=== PATIENT | female | born 1935 | race Caucasian/White ===

== ENCOUNTER 2020-04-12 11:37 | Inpatient (IN) | payer MEDICARE ==
[2020-04-12] MEDS ORDERED: Diltiazem 125 MG/25 ML ONE (12:03)
[2020-04-12 12:18] LABS: Hemoglobin 15.2 g/dL (12.0-16.0); Mean Corpuscular HGB CONC 33.2 g/dL (32.0-36.0); Mean Corpuscular Hemoglobin 30.7 pg (27.0-31.0); Mean Corpuscular Volume 92.3 fL (78.0-98.0); Mean Platelet Volume 7.8 fL (7.4-10.4); Platelet Count 327 thou/uL (130-400); RBC Distribution Width 12.8 % (11.5-14.5); Red Blood Cell (RBC) Count 4.94 mill/uL (4.20-5.40); White Blood Cell (WBC) Count 20.4 thou/uL (4.8-10.8)
[2020-04-12] MEDS ORDERED: cefTRIAXone\\ROCEPHIN 2 GM VIAL ONE (12:27)
[2020-04-12 12:38] LABS: Band 23 % (5-11); Large Platelets SLIGHT; Lymphocytes 4 % (21-51); MDiff Complete? YES; Monocytes 10 % (0-10); Neutrophil 63 % (42-75); Platelet Morphology Comment Appears Adequate; Polychromasia SLIGHT = 2-3 cells (100X) (0-2/hpf)
[2020-04-12 12:40] LABS: ALT (SGPT) 26 U/L (8-55); AST (SGOT) 41 U/L (5-34); Alkaline Phosphatase 173 U/L (40-110); Anion Gap 19 mmol/L (10-20); BUN (Urea Nitrogen) 20 mg/dL (9.8-20.1); Bilirubin, Total 3.4 mg/dL (0.2-1.2); Calc. Creatinine Clearance 0 mL/min (70-130); Calcium 9.2 mg/dL (7.8-10.44); Carbon Dioxide 23 mmol/L (23-31); Chloride 96 mmol/L (98-107); Globulin 2.6 g/dL (2.4-3.5); Glucose 95 mg/dL (83-110); Potassium 3.9 mmol/L (3.5-5.1); Protein, Total 5.6 g/dL (5.8-8.1); Sodium 134 mmol/L (136-145)
[2020-04-12] MEDS ORDERED: Azithromycin 500 MG VIAL ONE (13:20)
[2020-04-12] MEDS ORDERED: Iopamidol-370 76% 500 ML 1 ML ONE (13:20)
[2020-04-12 13:27] LABS: SARS-CoV-2 NAA Rapid Test Not Detected (NotDetected)
[2020-04-12 13:31] LABS: Bacteria/HPF None Seen HPF (None Seen); Bilirubin 1+ (Negative); Blood, Urine 2+ (Negative); Clarity Turbid (Clear); Glucose, Urine (Dipstick) Normal (Negative); Ketone, Urine 10 mg/dL (Negative); Leukocyte 75 Leu/uL (Negative); Nitrite Negative (Negative); Protein, Urine (Dipstick) 50 mg/dL (Neg-Trace); Specific Gravity, Urine 1.026 (1.002-1.036); Urobilinogen Greater than 12 mg/dL (Less than 2)
[2020-04-12 14:22] LABS: INR-International Normal Ratio 1.2; PTT 36.1 sec (22.9-36.1); Prothrombin Time 15.7 sec (12.0-14.7)
[2020-04-12] MEDS ORDERED: Enoxaparin Sodium 80 MG/0.8 ML SYRINGE ONE (14:33)
[2020-04-12 15:16] LABS: Phosphorus 3.6 mg/dL (2.3-4.7)
[2020-04-12 15:16] LABS: Lactic Acid 1.7 mmol/L (0.5-2.2)
[2020-04-12 15:18] LABS: Magnesium 1.9 mg/dL (1.6-2.6)
[2020-04-12 15:42] LABS: CKMB 2.1 ng/mL (0-6.6)
[2020-04-12] MEDS ORDERED: Ondansetron ODT 4 MG TAB PO PRN (16:28)
[2020-04-12] MEDS ORDERED: Ondansetron PF 4 MG/2 ML Vial IVP PRN (16:28)
[2020-04-12] MEDS ORDERED: Calcium Carbonate 500 MG ChewTAB PO PRN (16:28)
[2020-04-12] MEDS ORDERED: Acetaminophen 325 MG TAB PO PRN ×2 (16:28→17:00)
[2020-04-12] MEDS ORDERED: Acetaminophen 650 MG Suppository PR PRN (16:28)
[2020-04-12] MEDS ORDERED: Enoxaparin Sodium 40 MG/0.4 ML SYRINGE SC SCH (16:30)
[2020-04-12] MEDS ORDERED: Nitroglycerin 0.4 MG TAB (25 Tab Bottle) SL PRN (16:31)
[2020-04-12] MEDS ORDERED: Magnesium 2 GM/50 ML 2 GM in Premix Bag 1 BAG IVPB SCH (16:45)
[2020-04-12] MEDS: Sodium Chloride 0.9% 1,000 ML IV SCH (17:58)
[2020-04-12] MEDS: MEROPENEM 1 GM/50 ML 1 GM in Premix Bag 1 BAG IVPB SCH (17:58)
[2020-04-12 18:16] VITALS: BMI 27.1
[2020-04-12] MEDS ORDERED: VANCOMYCIN 1.75 GM/350 ML BAG 1.75 GM in Premix Bag 1 BAG IVPB SCH (19:30)
[2020-04-12] MEDS: Saccharomyces boulardii 250 MG CAP PO SCH (20:49)
[2020-04-12] MEDS: Enoxaparin Sodium 80 MG/0.8 ML SYRINGE SC SCH (20:49)
[2020-04-12] MEDS ORDERED: Aspirin Chewable 81 MG TAB PO SCH (21:00)
[2020-04-13] MEDS: Guaifenesin DM 100-10/5 ML UDCUP PO PRN (01:20)
[2020-04-13] MEDS: MEROPENEM 1 GM/50 ML 1 GM in Premix Bag 1 BAG IVPB SCH ×2 (01:20→09:25)
[2020-04-13 04:55] LABS: Hemoglobin 11.8 g/dL (12.0-16.0); Platelet Count 280 thou/uL (130-400)
[2020-04-13 05:00] LABS: Hemoglobin 11.8 g/dL (12.0-16.0); Mean Corpuscular HGB CONC 33.1 g/dL (32.0-36.0); Mean Corpuscular Hemoglobin 30.6 pg (27.0-31.0); Mean Corpuscular Volume 92.5 fL (78.0-98.0); Mean Platelet Volume 7.7 fL (7.4-10.4); Platelet Count 270 thou/uL (130-400); Red Blood Cell (RBC) Count 3.84 mill/uL (4.20-5.40); White Blood Cell (WBC) Count 14.7 thou/uL (4.8-10.8)
[2020-04-13 05:07] LABS: Anion Gap 13 mmol/L (10-20); BUN (Urea Nitrogen) 16 mg/dL (9.8-20.1); Calc. Creatinine Clearance 85 mL/min (70-130); Calcium 8.4 mg/dL (7.8-10.44); Carbon Dioxide 21 mmol/L (23-31); Chloride 103 mmol/L (98-107); Glucose 88 mg/dL (83-110); Magnesium 1.8 mg/dL (1.6-2.6); Phosphorus 2.9 mg/dL (2.3-4.7); Potassium 3.2 mmol/L (3.5-5.1); Sodium 134 mmol/L (136-145)
[2020-04-13 05:13] LABS: ALT (SGPT) 19 U/L (8-55); AST (SGOT) 29 U/L (5-34); Albumin 2.2 g/dL (3.4-4.8); Alkaline Phosphatase 158 U/L (40-110); Bilirubin, Direct 1.4 mg/dL (0.1-0.3); Bilirubin, Total 1.8 mg/dL (0.2-1.2); Protein, Total 4.8 g/dL (5.8-8.1)
[2020-04-13 05:15] LABS: Band 7 % (5-11); Eosinophils 2 % (0-10); Lymphocytes 8 % (21-51); MDiff Complete? YES; Metamyelocyte 1 % (0-0); Monocytes 7 % (0-10); Neutrophil 75 % (42-75); Platelet Morphology Comment Appears Adequate
[2020-04-13 05:31] LABS: CKMB 1.8 ng/mL (0-6.6)
[2020-04-13] MEDS ORDERED: Vancomycin HCl 750 MG in Sodium Chloride 0.9% 250 ML 250 ML IVPB SCH (08:00)
[2020-04-13] MEDS ORDERED: Potassium Chloride 20 MEQ TAB PO SCH (08:00)
[2020-04-13] MEDS ORDERED: Aspirin Chewable 81 MG TAB PO SCH (09:00)
[2020-04-13] MEDS: Enoxaparin Sodium 80 MG/0.8 ML SYRINGE SC SCH ×2 (09:20→21:37)
[2020-04-13] MEDS: Sodium Chloride 0.9% 1,000 ML IV SCH (13:37)
[2020-04-13] MEDS: cefTRIAXone\\ROCEPHIN 2 GM in Sodium Chloride 0.9% 100 ML IVPB SCH (17:39)
[2020-04-13] MEDS: Azithromycin 500 MG in Sodium Chloride 0.9% 250 ML 250 ML IVPB SCH (18:11)
[2020-04-13] MEDS: Benzonatate 100 MG CAP PO PRN (18:11)
[2020-04-13 19:00] LABS: Legionella Urinary Ag Negative (Negative); Strep pneumo Urine Ag NEGATIVE (NEGATIVE)
[2020-04-13] MEDS: Saccharomyces boulardii 250 MG CAP PO SCH (21:38)
[2020-04-14 05:00] LABS: ALT (SGPT) 29 U/L (8-55); AST (SGOT) 45 U/L (5-34); Albumin 2.2 g/dL (3.4-4.8); Alkaline Phosphatase 128 U/L (40-110); Anion Gap 13 mmol/L (10-20); BUN (Urea Nitrogen) 13 mg/dL (9.8-20.1); Bilirubin, Total 1.4 mg/dL (0.2-1.2); Calc. Creatinine Clearance 94 mL/min (70-130); Calcium 8.3 mg/dL (7.8-10.44); Carbon Dioxide 21 mmol/L (23-31); Chloride 104 mmol/L (98-107); Glucose 92 mg/dL (83-110); Potassium 3.9 mmol/L (3.5-5.1); Sodium 134 mmol/L (136-145)
[2020-04-14 05:03] LABS: Eosinophils 1 % (0-10); Hemoglobin 12.2 g/dL (12.0-16.0); Lymphocytes 12 % (21-51); MDiff Complete? YES; Mean Corpuscular HGB CONC 33.4 g/dL (32.0-36.0); Mean Corpuscular Volume 92.8 fL (78.0-98.0); Mean Platelet Volume 7.4 fL (7.4-10.4); Metamyelocyte 3 % (0-0); Monocytes 8 % (0-10); Myelocyte 2 % (0-0); Neutrophil 74 % (42-75); Platelet Count 306 thou/uL (130-400); Platelet Morphology Comment Appears Adequate; RBC Distribution Width 13.1 % (11.5-14.5); Red Blood Cell (RBC) Count 3.93 mill/uL (4.20-5.40); White Blood Cell (WBC) Count 12.7 thou/uL (4.8-10.8)
[2020-04-14 07:19] LABS: Vancomycin, Trough 7.1 ug/mL
[2020-04-14] MEDS: Benzonatate 100 MG CAP PO PRN ×2 (08:44→16:26)
[2020-04-14] MEDS: Enoxaparin Sodium 80 MG/0.8 ML SYRINGE SC SCH ×2 (08:45→20:38)
[2020-04-14] MEDS: Sodium Chloride 0.9% 1,000 ML IV SCH (08:45)
[2020-04-14] MEDS ORDERED: Lisinopril 10 MG TAB PO SCH (09:00)
[2020-04-14] MEDS: Azithromycin 500 MG in Sodium Chloride 0.9% 250 ML 250 ML IVPB SCH (16:27)
[2020-04-14] MEDS: cefTRIAXone\\ROCEPHIN 2 GM in Sodium Chloride 0.9% 100 ML IVPB SCH (16:27)
[2020-04-14] MEDS: Senokot S 8.6-50 MG TAB PO PRN (16:27)
[2020-04-14] MEDS: Guaifenesin DM 100-10/5 ML UDCUP PO PRN (20:38)
[2020-04-14] MEDS: Saccharomyces boulardii 250 MG CAP PO SCH (20:38)
[2020-04-15 04:48] LABS: #Basophils 0.1 thou/uL (0.0-0.2); #Eosinphils 0.6 thou/uL (0.0-0.7); #Lymphocytes 1.2 thou/uL (1.20-3.40); #Neutrophils 9.7 thou/uL (1.40-6.50); %Basophils 0.5 % (0.0-1.0); %Eosinophils 5.1 % (0.0-10.0); %Lymphocytes 9.7 % (21.0-51.0); %Neutrophils 76.7 % (42.0-75.0); Hemoglobin 12.1 g/dL (12.0-16.0); Mean Corpuscular HGB CONC 33.1 g/dL (32.0-36.0); Mean Corpuscular Hemoglobin 30.8 pg (27.0-31.0); Mean Corpuscular Volume 93.1 fL (78.0-98.0); Mean Platelet Volume 7.4 fL (7.4-10.4); Platelet Count 336 thou/uL (130-400); Red Blood Cell (RBC) Count 3.94 mill/uL (4.20-5.40); White Blood Cell (WBC) Count 12.6 thou/uL (4.8-10.8)
[2020-04-15 05:03] LABS: ALT (SGPT) 38 U/L (8-55); AST (SGOT) 55 U/L (5-34); Albumin 2.2 g/dL (3.4-4.8); Alkaline Phosphatase 142 U/L (40-110); Anion Gap 12 mmol/L (10-20); BUN (Urea Nitrogen) 13 mg/dL (9.8-20.1); Bilirubin, Total 1.1 mg/dL (0.2-1.2); Calc. Creatinine Clearance 95 mL/min (70-130); Calcium 8.3 mg/dL (7.8-10.44); Carbon Dioxide 23 mmol/L (23-31); Chloride 103 mmol/L (98-107); Globulin 2.6 g/dL (2.4-3.5); Glucose 101 mg/dL (83-110); Potassium 3.8 mmol/L (3.5-5.1); Protein, Total 4.8 g/dL (5.8-8.1); Sodium 134 mmol/L (136-145)
[2020-04-15] MEDS: Sodium Chloride 0.9% 1,000 ML IV SCH (05:15)
[2020-04-15] MEDS: Cholecalciferol 1,000 UNITS (25 MCG) TAB PO SCH (08:57)
[2020-04-15] MEDS: Enoxaparin Sodium 80 MG/0.8 ML SYRINGE SC SCH (09:02)
[2020-04-15] MEDS: Benzonatate 100 MG CAP PO PRN (09:02)
[2020-04-15] MEDS: cefTRIAXone\\ROCEPHIN 2 GM in Sodium Chloride 0.9% 100 ML IVPB SCH (17:17)
[2020-04-15] MEDS: Azithromycin 500 MG in Sodium Chloride 0.9% 250 ML 250 ML IVPB SCH (17:17)
[2020-04-15] MEDS: Saccharomyces boulardii 250 MG CAP PO SCH (20:57)
[2020-04-15] MEDS: Apixaban 5 MG TAB PO SCH (20:57)
[2020-04-16 04:45] LABS: #Eosinphils 0.6 thou/uL (0.0-0.7); #Lymphocytes 1.5 thou/uL (1.20-3.40); #Monocytes 0.9 thou/uL (0.11-0.59); #Neutrophils 8.8 thou/uL (1.40-6.50); %Eosinophils 4.7 % (0.0-10.0); %Lymphocytes 12.8 % (21.0-51.0); %Neutrophils 74.5 % (42.0-75.0); Hemoglobin 12.1 g/dL (12.0-16.0); Mean Corpuscular HGB CONC 33.2 g/dL (32.0-36.0); Mean Corpuscular Hemoglobin 30.7 pg (27.0-31.0); Mean Corpuscular Volume 92.7 fL (78.0-98.0); Mean Platelet Volume 7.3 fL (7.4-10.4); Platelet Count 338 thou/uL (130-400); RBC Distribution Width 13.1 % (11.5-14.5); Red Blood Cell (RBC) Count 3.93 mill/uL (4.20-5.40); White Blood Cell (WBC) Count 11.8 thou/uL (4.8-10.8)
[2020-04-16 05:09] LABS: ALT (SGPT) 34 U/L (8-55); AST (SGOT) 38 U/L (5-34); Albumin 2.1 g/dL (3.4-4.8); Alkaline Phosphatase 127 U/L (40-110); Anion Gap 12 mmol/L (10-20); BUN (Urea Nitrogen) 13 mg/dL (9.8-20.1); Bilirubin, Total 0.7 mg/dL (0.2-1.2); Calc. Creatinine Clearance 90 mL/min (70-130); Calcium 8.4 mg/dL (7.8-10.44); Carbon Dioxide 23 mmol/L (23-31); Chloride 102 mmol/L (98-107); Globulin 2.7 g/dL (2.4-3.5); Glucose 95 mg/dL (83-110); Protein, Total 4.8 g/dL (5.8-8.1); Sodium 133 mmol/L (136-145)
[2020-04-16] MEDS: Apixaban 5 MG TAB PO SCH ×2 (09:12→20:20)
[2020-04-16] MEDS: Cholecalciferol 1,000 UNITS (25 MCG) TAB PO SCH (09:19)
[2020-04-16 10:43] LABS: Hemoglobin 12.5 g/dL (12.0-16.0); Platelet Count 377 thou/uL (130-400)
[2020-04-16] MEDS: cefTRIAXone\\ROCEPHIN 2 GM in Sodium Chloride 0.9% 100 ML IVPB SCH (17:16)
[2020-04-16] MEDS: Azithromycin 500 MG in Sodium Chloride 0.9% 250 ML 250 ML IVPB SCH (17:16)
[2020-04-16] MEDS: Senokot S 8.6-50 MG TAB PO PRN (17:30)
[2020-04-16] MEDS: Saccharomyces boulardii 250 MG CAP PO SCH (20:20)
[2020-04-17 05:16] LABS: #Eosinphils 0.4 thou/uL (0.0-0.7); #Lymphocytes 1.5 thou/uL (1.20-3.40); #Monocytes 0.6 thou/uL (0.11-0.59); %Basophils 0.2 % (0.0-1.0); %Eosinophils 3.4 % (0.0-10.0); %Lymphocytes 12.7 % (21.0-51.0); %Monocytes 5.3 % (0.0-10.0); %Neutrophils 78.3 % (42.0-75.0); Hemoglobin 12.1 g/dL (12.0-16.0); Mean Corpuscular HGB CONC 32.4 g/dL (32.0-36.0); Mean Corpuscular Hemoglobin 29.9 pg (27.0-31.0); Mean Corpuscular Volume 92.3 fL (78.0-98.0); Mean Platelet Volume 7.4 fL (7.4-10.4); Platelet Count 362 thou/uL (130-400); Red Blood Cell (RBC) Count 4.06 mill/uL (4.20-5.40); White Blood Cell (WBC) Count 11.5 thou/uL (4.8-10.8)
[2020-04-17 05:35] LABS: ALT (SGPT) 42 U/L (8-55); AST (SGOT) 45 U/L (5-34); Albumin 2.1 g/dL (3.4-4.8); Alkaline Phosphatase 118 U/L (40-110); Anion Gap 12 mmol/L (10-20); BUN (Urea Nitrogen) 12 mg/dL (9.8-20.1); Bilirubin, Total 0.7 mg/dL (0.2-1.2); Calc. Creatinine Clearance 99 mL/min (70-130); Calcium 8.5 mg/dL (7.8-10.44); Carbon Dioxide 23 mmol/L (23-31); Chloride 101 mmol/L (98-107); Globulin 2.7 g/dL (2.4-3.5); Glucose 91 mg/dL (83-110); Protein, Total 4.8 g/dL (5.8-8.1); Sodium 132 mmol/L (136-145)
[2020-04-17] MEDS: Apixaban 5 MG TAB PO SCH ×2 (10:01→20:10)
[2020-04-17] MEDS: Cholecalciferol 1,000 UNITS (25 MCG) TAB PO SCH (10:01)
[2020-04-17] MEDS: cefTRIAXone\\ROCEPHIN 2 GM in Sodium Chloride 0.9% 100 ML IVPB SCH (17:24)
[2020-04-17] MEDS: Bisacodyl 5 MG TAB PO PRN (18:20)
[2020-04-17] MEDS: Azithromycin 500 MG in Sodium Chloride 0.9% 250 ML 250 ML IVPB SCH (18:20)
[2020-04-17] MEDS: Saccharomyces boulardii 250 MG CAP PO SCH (20:10)
[2020-04-18 04:14] LABS: #Basophils 0.1 thou/uL (0.0-0.2); #Eosinphils 0.4 thou/uL (0.0-0.7); #Lymphocytes 1.5 thou/uL (1.20-3.40); #Monocytes 0.8 thou/uL (0.11-0.59); #Neutrophils 10.6 thou/uL (1.40-6.50); %Basophils 0.5 % (0.0-1.0); %Lymphocytes 11.1 % (21.0-51.0); %Monocytes 5.8 % (0.0-10.0); %Neutrophils 79.7 % (42.0-75.0); Hemoglobin 12.5 g/dL (12.0-16.0); Mean Corpuscular HGB CONC 33.4 g/dL (32.0-36.0); Mean Corpuscular Hemoglobin 30.8 pg (27.0-31.0); Mean Corpuscular Volume 92.2 fL (78.0-98.0); Platelet Count 366 thou/uL (130-400); Red Blood Cell (RBC) Count 4.05 mill/uL (4.20-5.40); White Blood Cell (WBC) Count 13.3 thou/uL (4.8-10.8)
[2020-04-18 04:29] LABS: ALT (SGPT) 44 U/L (8-55); AST (SGOT) 44 U/L (5-34); Albumin 2.1 g/dL (3.4-4.8); Alkaline Phosphatase 110 U/L (40-110); Anion Gap 12 mmol/L (10-20); BUN (Urea Nitrogen) 13 mg/dL (9.8-20.1); Bilirubin, Total 0.7 mg/dL (0.2-1.2); Calc. Creatinine Clearance 99 mL/min (70-130); Calcium 8.6 mg/dL (7.8-10.44); Carbon Dioxide 22 mmol/L (23-31); Chloride 101 mmol/L (98-107); Globulin 2.9 g/dL (2.4-3.5); Glucose 93 mg/dL (83-110); Potassium 4.1 mmol/L (3.5-5.1); Sodium 131 mmol/L (136-145)
[2020-04-18] MEDS: Cholecalciferol 1,000 UNITS (25 MCG) TAB PO SCH (09:41)
[2020-04-18] MEDS: Apixaban 5 MG TAB PO SCH ×2 (09:41→20:56)
[2020-04-18] MEDS: Bisacodyl 5 MG TAB PO PRN (13:41)
[2020-04-18] MEDS: Azithromycin 500 MG in Sodium Chloride 0.9% 250 ML 250 ML IVPB SCH (17:07)
[2020-04-18] MEDS: cefTRIAXone\\ROCEPHIN 2 GM in Sodium Chloride 0.9% 100 ML IVPB SCH (17:07)
[2020-04-18] MEDS: Saccharomyces boulardii 250 MG CAP PO SCH (20:56)
[2020-04-19 08:40] LABS: Hemoglobin 12.7 g/dL (12.0-16.0); Platelet Count 447 thou/uL (130-400)
[2020-04-19] MEDS: Apixaban 5 MG TAB PO SCH ×2 (09:07→20:14)
[2020-04-19] MEDS: Cholecalciferol 1,000 UNITS (25 MCG) TAB PO SCH (09:07)
[2020-04-19] MEDS: cefTRIAXone\\ROCEPHIN 2 GM in Sodium Chloride 0.9% 100 ML IVPB SCH (17:14)
[2020-04-19] MEDS: Azithromycin 500 MG in Sodium Chloride 0.9% 250 ML 250 ML IVPB SCH (17:14)
[2020-04-19] MEDS: Saccharomyces boulardii 250 MG CAP PO SCH (20:14)
[2020-04-20 04:51] LABS: #Basophils 0.1 thou/uL (0.0-0.2); #Eosinphils 0.2 thou/uL (0.0-0.7); #Lymphocytes 1.4 thou/uL (1.20-3.40); #Monocytes 0.7 thou/uL (0.11-0.59); %Basophils 0.7 % (0.0-1.0); %Eosinophils 1.9 % (0.0-10.0); %Monocytes 6.1 % (0.0-10.0); %Neutrophils 79.3 % (42.0-75.0); Hemoglobin 12.5 g/dL (12.0-16.0); Mean Corpuscular HGB CONC 33.6 g/dL (32.0-36.0); Mean Corpuscular Hemoglobin 30.9 pg (27.0-31.0); Mean Platelet Volume 7.2 fL (7.4-10.4); Platelet Count 419 thou/uL (130-400); RBC Distribution Width 13.1 % (11.5-14.5); Red Blood Cell (RBC) Count 4.04 mill/uL (4.20-5.40); White Blood Cell (WBC) Count 11.4 thou/uL (4.8-10.8)
[2020-04-20 05:11] LABS: Anion Gap 13 mmol/L (10-20); BUN (Urea Nitrogen) 12 mg/dL (9.8-20.1); Calc. Creatinine Clearance 84 mL/min (70-130); Calcium 8.9 mg/dL (7.8-10.44); Carbon Dioxide 26 mmol/L (23-31); Chloride 101 mmol/L (98-107); Glucose 82 mg/dL (83-110); Potassium 4.5 mmol/L (3.5-5.1); Sodium 135 mmol/L (136-145)
[2020-04-20] MEDS: Cholecalciferol 1,000 UNITS (25 MCG) TAB PO SCH (08:37)
[2020-04-20] MEDS: Apixaban 5 MG TAB PO SCH ×2 (08:38→20:17)
[2020-04-20] MEDS: cefTRIAXone\\ROCEPHIN 2 GM in Sodium Chloride 0.9% 100 ML IVPB SCH (17:29)
[2020-04-20] MEDS: Azithromycin 500 MG in Sodium Chloride 0.9% 250 ML 250 ML IVPB SCH (18:44)
[2020-04-20] MEDS: Saccharomyces boulardii 250 MG CAP PO SCH (20:17)
[2020-04-21 06:14] LABS: #Basophils 0.1 thou/uL (0.0-0.2); #Eosinphils 0.2 thou/uL (0.0-0.7); #Lymphocytes 1.4 thou/uL (1.20-3.40); #Monocytes 0.9 thou/uL (0.11-0.59); %Basophils 0.5 % (0.0-1.0); %Eosinophils 1.5 % (0.0-10.0); %Lymphocytes 12.2 % (21.0-51.0); %Monocytes 7.6 % (0.0-10.0); %Neutrophils 78.2 % (42.0-75.0); Hemoglobin 12.4 g/dL (12.0-16.0); Mean Corpuscular HGB CONC 33.1 g/dL (32.0-36.0); Mean Corpuscular Hemoglobin 30.4 pg (27.0-31.0); Mean Corpuscular Volume 91.8 fL (78.0-98.0); Mean Platelet Volume 6.7 fL (7.4-10.4); Platelet Count 449 thou/uL (130-400); Red Blood Cell (RBC) Count 4.08 mill/uL (4.20-5.40); White Blood Cell (WBC) Count 11.5 thou/uL (4.8-10.8)
[2020-04-21 06:33] LABS: Anion Gap 11 mmol/L (10-20); BUN (Urea Nitrogen) 12 mg/dL (9.8-20.1); Calc. Creatinine Clearance 91 mL/min (70-130); Calcium 8.6 mg/dL (7.8-10.44); Carbon Dioxide 24 mmol/L (23-31); Chloride 102 mmol/L (98-107); Glucose 85 mg/dL (83-110); Potassium 4.3 mmol/L (3.5-5.1); Sodium 133 mmol/L (136-145)
[2020-04-21] MEDS: Cholecalciferol 1,000 UNITS (25 MCG) TAB PO SCH (09:05)
[2020-04-21] MEDS: Apixaban 5 MG TAB PO SCH ×2 (09:05→20:55)
[2020-04-21] MEDS: Azithromycin 500 MG in Sodium Chloride 0.9% 250 ML 250 ML IVPB SCH (17:06)
[2020-04-21] MEDS: cefTRIAXone\\ROCEPHIN 2 GM in Sodium Chloride 0.9% 100 ML IVPB SCH (17:06)
[2020-04-21] MEDS: Saccharomyces boulardii 250 MG CAP PO SCH (20:55)
[2020-04-22 08:57] VITALS: TEMP 97.7
[2020-04-22] MEDS: Apixaban 5 MG TAB PO SCH (09:15)
[2020-04-22] MEDS: Cholecalciferol 1,000 UNITS (25 MCG) TAB PO SCH (09:17)
[2020-04-22 10:21] LABS: Hemoglobin 12.7 g/dL (12.0-16.0); Platelet Count 437 thou/uL (130-400)
[2020-04-22 16:38] VITALS: BP 119/79
== END 2020-04-22 16:18 | DRG 871 ==
LOC: ERS 11:37 → ERHOLD 14:12 → 2NO 17:43 → T4-B 04-20 15:44
PROVIDERS: ADMIT Internal Medicine; ATTEND Internal Medicine
DX: A41.9 Sepsis, unspecified organism (principal); J18.9 Pneumonia, unspecified organism; E87.1 Hypo-osmolality and hyponatremia; J91.8 Pleural effusion in other conditions classified elsewhere; E78.5 Hyperlipidemia, unspecified; R65.20 Severe sepsis without septic shock; I10 Essential (primary) hypertension; H91.90 Unspecified hearing loss, unspecified ear; R94.5 Abnormal results of liver function studies; E83.42 Hypomagnesemia; R32 Unspecified urinary incontinence; I48.0 Paroxysmal atrial fibrillation; F03.90 Unspecified dementia, unspecified severity, without behavioral disturbance, psychotic disturbance, mood disturbance, and anxiety; E87.6 Hypokalemia; Z96.649 Presence of unspecified artificial hip joint; M19.90 Unspecified osteoarthritis, unspecified site; Z98.42 Cataract extraction status, left eye; Z91.81 History of falling; Z79.01 Long term (current) use of anticoagulants; Z98.41 Cataract extraction status, right eye; Z79.899 Other long term (current) drug therapy; Z80.41 Family history of malignant neoplasm of ovary; Z80.0 Family history of malignant neoplasm of digestive organs
CPT/HCPCS: 0240U; 36415; 51701; 70450; 71045; 71275; 74176; 74230; 76705; 80048; 80053; 80076; 80202; 81003; 81015; 82553; 83605; 83690; 83735; 83880; 84100; 84145; 84443; 84484; 85014; 85018; 85025; 85049; 85610; 85730; 87040; 87086; 87449; 87899; 93005; 93306; 94760; 96365; 96372; 96375; J0456; J0696; J1650; J2185; J3370; J3490; J7050; Q9967

== ENCOUNTER 2021-08-24 22:08 | Inpatient (IN) | payer MEDICARE ==
[2021-08-24 23:53] LABS: ALT (SGPT) 10 U/L (8-55); AST (SGOT) 19 U/L (5-34); Albumin 3.1 g/dL (3.4-4.8); Alkaline Phosphatase 116 U/L (40-110); Anion Gap 14 mmol/L (10-20); BUN (Urea Nitrogen) 19 mg/dL (9.8-20.1); Bilirubin, Total 3.3 mg/dL (0.2-1.2); Calc. Creatinine Clearance 0 mL/min (70-130); Calcium 8.4 mg/dL (7.8-10.44); Carbon Dioxide 21 mmol/L (23-31); Chloride 103 mmol/L (98-107); Estimated GFR 55; Globulin 2.6 g/dL (2.4-3.5); Glucose 103 mg/dL (83-110); Protein, Total 5.7 g/dL (5.8-8.1); Sodium 135 mmol/L (136-145)
[2021-08-25 00:03] LABS: Band 21 % (5-11); Hemoglobin 13.5 g/dL (12.0-16.0); MDiff Complete? YES; Mean Corpuscular Hemoglobin 31.8 pg (27.0-31.0); Mean Corpuscular Volume 93.7 fL (78.0-98.0); Mean Platelet Volume 8.4 fL (7.4-10.4); Monocytes 9 % (0-10); Neutrophil 70 % (42-75); Platelet Count 123 thou/uL (130-400); Platelet Morphology Comment Appears Adequate; RBC Morphology Normal; Red Blood Cell (RBC) Count 4.25 mill/uL (4.20-5.40); White Blood Cell (WBC) Count 14.6 thou/uL (4.8-10.8)
[2021-08-25 00:15] LABS: Potassium 2.7 mmol/L (3.5-5.1)
[2021-08-25] MEDS ORDERED: Pot Chloride/Pot Bicarb/Cit Ac 25 mEq Effervescent Tablet ONE (00:20)
[2021-08-25 01:08] LABS: Bacteria/HPF 4+ HPF (None Seen); Bilirubin 1+ (Negative); Blood, Urine 3+ (Negative); Clarity Extra Turbid (Clear); Glucose, Urine (Dipstick) Normal (Negative); Ketone, Urine Negative (Negative); Leukocyte 500 Leu/uL (Negative); Nitrite Negative (Negative); Protein, Urine (Dipstick) 100 mg/dL (Neg-Trace); RBC/HPF Greater than 50 HPF (0-3); Specific Gravity, Urine 1.015 (1.002-1.036); WBC/HPF Greater than 50 HPF (0-3); pH, Urine 5.5 (5.0-9.0)
[2021-08-25] MEDS ORDERED: Cefepime 2 GM VIAL ONE (01:54)
[2021-08-25] MEDS ORDERED: Vancomycin 1 GM/200 ML BAG ONE (03:37)
[2021-08-25] MEDS ORDERED: Acetaminophen 650 MG Suppository PR PRN (03:56)
[2021-08-25] MEDS ORDERED: Ondansetron PF 4 MG/2 ML Vial IVP PRN (04:00)
[2021-08-25] MEDS ORDERED: Ondansetron ODT 4 MG TAB SL PRN (04:00)
[2021-08-25] MEDS ORDERED: Sodium Chloride 0.9% 1,000 ML IV SCH (04:00)
[2021-08-25] MEDS ORDERED: Electrolyte Replacement Protocol 1 EACH FS SCH (04:15)
[2021-08-25 04:26] VITALS: BMI 26.8
[2021-08-25] MEDS: Sodium Chloride 0.9% 1,000 ML IV SCH ×3 (04:30→18:42)
[2021-08-25 04:41] LABS: #Lymphocytes 0.4 thou/uL (1.20-3.40); #Monocytes 0.9 thou/uL (0.11-0.59); #Neutrophils 16.5 thou/uL (1.40-6.50); %Basophils 0.1 % (0.0-1.0); %Lymphocytes 2.3 % (21.0-51.0); %Neutrophils 92.7 % (42.0-75.0); Hemoglobin 12.5 g/dL (12.0-16.0); Mean Corpuscular HGB CONC 34.2 g/dL (32.0-36.0); Mean Corpuscular Hemoglobin 32.2 pg (27.0-31.0); Mean Corpuscular Volume 94.2 fL (78.0-98.0); Mean Platelet Volume 8.5 fL (7.4-10.4); Platelet Count 115 thou/uL (130-400); Red Blood Cell (RBC) Count 3.86 mill/uL (4.20-5.40); White Blood Cell (WBC) Count 17.8 thou/uL (4.8-10.8)
[2021-08-25 04:50] LABS: Anion Gap 16 mmol/L (10-20); BUN (Urea Nitrogen) 19 mg/dL (9.8-20.1); Calc. Creatinine Clearance 53 mL/min (70-130); Calcium 7.7 mg/dL (7.8-10.44); Carbon Dioxide 18 mmol/L (23-31); Chloride 105 mmol/L (98-107); Estimated GFR 57; Glucose 154 mg/dL (83-110); Magnesium 1.6 mg/dL (1.6-2.6); Potassium 3.6 mmol/L (3.5-5.1); Sodium 135 mmol/L (136-145)
[2021-08-25] MEDS: Potassium Bicarbonate/Cit Ac 25 MEQ TAB PO SCH ×2 (04:59→06:01)
[2021-08-25] MEDS ORDERED: Vancomycin HCl 750 MG in Sodium Chloride 0.9% 250 ML 250 ML IVPB SCH (05:00)
[2021-08-25] MEDS ORDERED: Magnesium 2 GM/50 ML(in water) 2 GM in Premix Bag 1 BAG IVPB SCH ×2 (06:00→08:00)
[2021-08-25] MEDS ORDERED: Enoxaparin Sodium 40 MG/0.4 ML SYRINGE SC SCH (09:00)
[2021-08-25] MEDS ORDERED: Cefepime 2 GM in Sodium Chloride 0.9% 100 ML IVPB SCH (10:00)
[2021-08-25] MEDS: Nystatin Powder 15 GM BOT TOP SCH ×2 (13:33→20:49)
[2021-08-25] MEDS: cefTRIAXone\\ROCEPHIN 2 GM in Sodium Chloride 0.9% 100 ML IVPB SCH (18:41)
[2021-08-25] MEDS: Metoprolol Tartrate 25 MG TAB PO SCH (20:27)
[2021-08-25] MEDS: Cyanocobalamin (Vitamin B-12) 1,000 MCG TAB PO SCH (20:27)
[2021-08-25] MEDS: Folic Acid 1 MG TAB PO SCH (20:27)
[2021-08-25] MEDS: Apixaban 5 MG TAB PO SCH (20:27)
[2021-08-25] MEDS: Multivit, Therapeutic 1 TAB PO SCH (20:28)
[2021-08-25] MEDS: Acetaminophen 325 MG TAB PO PRN (20:30)
[2021-08-25] MEDS: Saccharomyces boulardii 250 MG CAP PO SCH (20:48)
[2021-08-26] MEDS ORDERED: VANCOMYCIN 1.25 GM/250 ML BAG 1.25 GM in Premix Bag 1 BAG IVPB SCH (03:00)
[2021-08-26] MEDS: Sodium Chloride 0.9% 1,000 ML IV SCH ×2 (06:27→19:47)
[2021-08-26 06:46] LABS: #Eosinphils 0.2 thou/uL (0.0-0.7); #Lymphocytes 0.9 thou/uL (1.20-3.40); #Monocytes 0.9 thou/uL (0.11-0.59); #Neutrophils 7.2 thou/uL (1.40-6.50); %Basophils 0.4 % (0.0-1.0); %Eosinophils 2.4 % (0.0-10.0); %Lymphocytes 10.1 % (21.0-51.0); %Neutrophils 77.2 % (42.0-75.0); Hemoglobin 12.7 g/dL (12.0-16.0); Mean Corpuscular HGB CONC 32.4 g/dL (32.0-36.0); Mean Corpuscular Hemoglobin 30.7 pg (27.0-31.0); Mean Corpuscular Volume 94.9 fL (78.0-98.0); Mean Platelet Volume 9.1 fL (7.4-10.4); Platelet Count 126 thou/uL (130-400); Red Blood Cell (RBC) Count 4.14 mill/uL (4.20-5.40); White Blood Cell (WBC) Count 9.3 thou/uL (4.8-10.8)
[2021-08-26 06:48] LABS: Phosphorus 2.1 mg/dL (2.3-4.7)
[2021-08-26 06:53] LABS: ALT (SGPT) 13 U/L (8-55); AST (SGOT) 21 U/L (5-34); Albumin 2.7 g/dL (3.4-4.8); Alkaline Phosphatase 100 U/L (40-110); Anion Gap 10 mmol/L (10-20); BUN (Urea Nitrogen) 19 mg/dL (9.8-20.1); Bilirubin, Total 1.4 mg/dL (0.2-1.2); CRP (Inflammatory) 14.06 mg/dL (= or < 0.5); Calc. Creatinine Clearance 64 mL/min (70-130); Calcium 8.4 mg/dL (7.8-10.44); Carbon Dioxide 22 mmol/L (23-31); Chloride 111 mmol/L (98-107); Estimated GFR 71; Globulin 2.4 g/dL (2.4-3.5); Glucose 92 mg/dL (83-110); Protein, Total 5.1 g/dL (5.8-8.1); Sodium 139 mmol/L (136-145)
[2021-08-26] MEDS ORDERED: Magnesium 2 GM/50 ML(in water) 2 GM in Premix Bag 1 BAG IVPB SCH (08:00)
[2021-08-26] MEDS ORDERED: Potassium Phosphate 30 MMOL in Sodium Chloride 0.9% 250 ML 250 ML IVPB SCH (08:45)
[2021-08-26] MEDS: Cholecalciferol 1,000 UNITS (25 MCG) TAB PO SCH (08:45)
[2021-08-26] MEDS: Metoprolol Tartrate 25 MG TAB PO SCH ×2 (08:45→19:40)
[2021-08-26] MEDS: Apixaban 5 MG TAB PO SCH ×2 (08:45→19:39)
[2021-08-26] MEDS: Nystatin Powder 15 GM BOT TOP SCH ×2 (08:46→20:06)
[2021-08-26] MEDS: cefTRIAXone\\ROCEPHIN 2 GM in Sodium Chloride 0.9% 100 ML IVPB SCH (18:18)
[2021-08-26] MEDS: Saccharomyces boulardii 250 MG CAP PO SCH (19:39)
[2021-08-26] MEDS: Folic Acid 1 MG TAB PO SCH (19:40)
[2021-08-26] MEDS: Multivit, Therapeutic 1 TAB PO SCH (19:40)
[2021-08-26] MEDS: Cyanocobalamin (Vitamin B-12) 1,000 MCG TAB PO SCH (19:41)
[2021-08-26] MEDS: Acetaminophen 325 MG TAB PO PRN (19:41)
[2021-08-27 06:52] LABS: ALT (SGPT) 12 U/L (8-55); AST (SGOT) 16 U/L (5-34); Albumin 2.6 g/dL (3.4-4.8); Alkaline Phosphatase 107 U/L (40-110); Anion Gap 12 mmol/L (10-20); BUN (Urea Nitrogen) 13 mg/dL (9.8-20.1); Bilirubin, Total 0.9 mg/dL (0.2-1.2); Calc. Creatinine Clearance 67 mL/min (70-130); Calcium 8.3 mg/dL (7.8-10.44); Carbon Dioxide 22 mmol/L (23-31); Chloride 107 mmol/L (98-107); Estimated GFR 76; Globulin 2.5 g/dL (2.4-3.5); Glucose 80 mg/dL (83-110); Potassium 3.7 mmol/L (3.5-5.1); Protein, Total 5.1 g/dL (5.8-8.1); Sodium 137 mmol/L (136-145)
[2021-08-27] MEDS: Nystatin Powder 15 GM BOT TOP SCH ×2 (08:09→20:28)
[2021-08-27] MEDS: Metoprolol Tartrate 25 MG TAB PO SCH ×2 (08:09→20:19)
[2021-08-27] MEDS: Cholecalciferol 1,000 UNITS (25 MCG) TAB PO SCH (08:09)
[2021-08-27] MEDS: Apixaban 5 MG TAB PO SCH ×2 (08:09→20:19)
[2021-08-27] MEDS: Sodium Chloride 0.9% 1,000 ML IV SCH (08:15)
[2021-08-27] MEDS: cefTRIAXone\\ROCEPHIN 2 GM in Sodium Chloride 0.9% 100 ML IVPB SCH (17:33)
[2021-08-27] MEDS: Multivit, Therapeutic 1 TAB PO SCH (20:19)
[2021-08-27] MEDS: Cyanocobalamin (Vitamin B-12) 1,000 MCG TAB PO SCH (20:19)
[2021-08-27] MEDS: Folic Acid 1 MG TAB PO SCH (20:19)
[2021-08-27] MEDS: Saccharomyces boulardii 250 MG CAP PO SCH (20:25)
[2021-08-28] MEDS: Sodium Chloride 0.9% 1,000 ML IV SCH ×2 (00:03→11:45)
[2021-08-28] MEDS: Cholecalciferol 1,000 UNITS (25 MCG) TAB PO SCH (08:06)
[2021-08-28] MEDS: Apixaban 5 MG TAB PO SCH ×2 (08:07→20:21)
[2021-08-28] MEDS: Nystatin Powder 15 GM BOT TOP SCH ×2 (08:07→20:33)
[2021-08-28] MEDS: Metoprolol Tartrate 25 MG TAB PO SCH ×2 (08:07→20:20)
[2021-08-28] MEDS: Cyanocobalamin (Vitamin B-12) 1,000 MCG TAB PO SCH (20:21)
[2021-08-28] MEDS: Folic Acid 1 MG TAB PO SCH (20:21)
[2021-08-28] MEDS: Ciprofloxacin 500 MG TAB PO SCH (20:21)
[2021-08-28] MEDS: Saccharomyces boulardii 250 MG CAP PO SCH (20:21)
[2021-08-28] MEDS: Multivit, Therapeutic 1 TAB PO SCH (20:21)
[2021-08-29] MEDS: Ciprofloxacin 500 MG TAB PO SCH ×2 (06:41→21:30)
[2021-08-29 08:56] LABS: Anion Gap 12 mmol/L (10-20); BUN (Urea Nitrogen) 10 mg/dL (9.8-20.1); Calc. Creatinine Clearance 70 mL/min (70-130); Calcium 8.4 mg/dL (7.8-10.44); Carbon Dioxide 23 mmol/L (23-31); Chloride 103 mmol/L (98-107); Estimated GFR 79; Glucose 94 mg/dL (83-110); Potassium 3.9 mmol/L (3.5-5.1); Sodium 134 mmol/L (136-145)
[2021-08-29] MEDS: Apixaban 5 MG TAB PO SCH ×2 (09:28→22:04)
[2021-08-29] MEDS: Nystatin Powder 15 GM BOT TOP SCH ×2 (09:29→22:04)
[2021-08-29] MEDS: Cholecalciferol 1,000 UNITS (25 MCG) TAB PO SCH (09:29)
[2021-08-29] MEDS: Metoprolol Tartrate 25 MG TAB PO SCH ×2 (09:29→22:03)
[2021-08-29 09:55] LABS: Band 2 % (5-11); Eosinophils 2 % (0-10); Hemoglobin 13.4 g/dL (12.0-16.0); Lymphocytes 9 % (21-51); MDiff Complete? YES; Mean Corpuscular HGB CONC 33.5 g/dL (32.0-36.0); Mean Corpuscular Hemoglobin 31.2 pg (27.0-31.0); Mean Corpuscular Volume 92.9 fL (78.0-98.0); Mean Platelet Volume 8.5 fL (7.4-10.4); Metamyelocyte 1 % (0-0); Monocytes 8 % (0-10); Neutrophil 76 % (42-75); Platelet Count 187 thou/uL (130-400); RBC Distribution Width 12.3 % (11.5-14.5); RBC Morphology Normal; Reactive Lymphocytes 2 % (0-10); Red Blood Cell (RBC) Count 4.31 mill/uL (4.20-5.40)
[2021-08-29] MEDS: Folic Acid 1 MG TAB PO SCH (22:03)
[2021-08-29] MEDS: Multivit, Therapeutic 1 TAB PO SCH (22:04)
[2021-08-29] MEDS: Cyanocobalamin (Vitamin B-12) 1,000 MCG TAB PO SCH (22:04)
[2021-08-29] MEDS: Saccharomyces boulardii 250 MG CAP PO SCH (22:04)
[2021-08-30] MEDS: Ciprofloxacin 500 MG TAB PO SCH (05:52)
[2021-08-30 08:26] VITALS: BP 153/73; TEMP 97.8
[2021-08-30] MEDS: Metoprolol Tartrate 25 MG TAB PO SCH (08:59)
[2021-08-30] MEDS: Cholecalciferol 1,000 UNITS (25 MCG) TAB PO SCH (09:00)
[2021-08-30] MEDS: Apixaban 5 MG TAB PO SCH (09:00)
[2021-08-30] MEDS: Nystatin Powder 15 GM BOT TOP SCH (09:01)
== END 2021-08-30 17:50 | disposition swing bed (61) | DRG 872 ==
LOC: ERS 22:08 → T4-A 08-25 02:59
PROVIDERS: ADMIT Internal Medicine; ATTEND Internal Medicine
DX: A41.51 Sepsis due to Escherichia coli [E. coli] (principal); N30.00 Acute cystitis without hematuria; Z20.822 Contact with and (suspected) exposure to COVID-19; E78.2 Mixed hyperlipidemia; I48.0 Paroxysmal atrial fibrillation; I10 Essential (primary) hypertension; K21.9 Gastro-esophageal reflux disease without esophagitis; H91.90 Unspecified hearing loss, unspecified ear; E87.6 Hypokalemia; F03.90 Unspecified dementia, unspecified severity, without behavioral disturbance, psychotic disturbance, mood disturbance, and anxiety; R65.20 Severe sepsis without septic shock; E83.42 Hypomagnesemia; E83.39 Other disorders of phosphorus metabolism; L53.8 Other specified erythematous conditions; Z99.3 Dependence on wheelchair; Z98.890 Other specified postprocedural states; Z79.899 Other long term (current) drug therapy; Z79.01 Long term (current) use of anticoagulants
CPT/HCPCS: 36415; 71045; 76770; 80048; 80053; 81003; 81015; 83605; 83735; 84100; 85025; 86140; 87040; 87077; 87086; 87149; 87186; J0692; J0696; J3370; J3475; J3490; J7050; U0003; U0005